=== PATIENT | female | born 2000 ===

== ENCOUNTER 2019-08-21 13:33 | Inpatient (IN) ==
[2019-08-21 14:07] LABS: Basophils # 0.1 10*3/uL (0.0-0.2); Basophils % 0.5 % (0.0-0.8); Eosinophils # 0.1 10*3/uL (0.0-0.87); Hematocrit 36.6 VOL% (35.7-47.0); Hemoglobin 12.1 GM/DL (12.0-16.0); Immature Granulocytes % 0.6 %; Immature Granulocytes Absolute 0.06 #; Lymphocytes % 29.5 % (21.3-54.2); Mean Corpuscular HGB Conc 33.1 GM/DL (32-36); Mean Corpuscular Volume 90.1 FL (87-102); Mean Platelet Volume 10.8 FL (9.6-12.0); Monocytes % 8.6 % (1.7-12.7); Neutrophils % 59.8 % (38.7-73.9); Platelet Count 177 T/CUMM (130-400); Red Blood Count 4.06 MC/CUMM (3.8-5.5); Red Cell Distribution Width 15.6 % (9.3-17.3); White Blood Count 10.3 T/CUMM (4-12)
[2019-08-21] MEDS: LACTATED RINGERS 1,000 ML IV SCH (22:05)
[2019-08-21] MEDS ORDERED: BUTORPHANOL 2 MG/ML VIAL IV PRN (22:07)
[2019-08-21] MEDS: ONDANSETRON 4 MG/2 ML VIAL IV PRN (22:17)
[2019-08-22] MEDS ORDERED: PROMETHAZINE 25 MG/1 ML VIAL IM ONE (00:13)
[2019-08-22] MEDS ORDERED: NALOXONE 0.4 MG/ML VIAL IV PRN (00:13)
[2019-08-22] MEDS ORDERED: diphenhydrAMINE 50 MG/1 ML VIAL IV PRN ×2 (00:13)
[2019-08-22] MEDS ORDERED: ePHEDrine 50 MG/ML AMP IV PRN (00:13)
[2019-08-22] MEDS ORDERED: hydrOXYzine HCL 25 MG/1 ML VIAL IM PRN (00:13)
[2019-08-22] MEDS ORDERED: FAMOTIDINE 20 MG/2 ML VIAL IV ONE ×2 (00:17→16:43)
[2019-08-22] MEDS ORDERED: CITRIC ACID/SODIUM CITRATE 30 ML UDCUP PO ONE ×2 (00:17→16:43)
[2019-08-22] MEDS: fentaNYL 2 MCG/ROPIV 0.2% EPID 100 ML EPIDURAL SCH ×2 (00:30→09:14)
[2019-08-22] MEDS ORDERED: LACTATED RINGERS 1,000 ML IV SCH ×2 (00:30→18:00)
[2019-08-22 03:21] LABS: Apearance,Urine CLEAR (Clear); Bilirubin,Urine Negative (Negative); Blood, Urine Negative (Negative); Glucose,Urine (UA) Negative (Negative); Ketones,Urine Negative (Negative); Mucus,Urine Occasional /LPF (Occasional); Nitrite,Urine Negative (Negative); Protein,Urine Negative; RBC,Urine 1 /HPF (0-4); Renal Epithelial Cells,Urine Occasional /HPF (<1); Urine Color Straw (Yellow); Urine Specific Gravity 1.011 (1.001-1.035); Urine Urobilinogen < 2.0 EU/DL (0.2-1.0); WBC,Urine 1 /HPF (0-6)
[2019-08-22] MEDS: LACTATED RINGERS 1,000 ML IV SCH (09:04)
[2019-08-22] MEDS ORDERED: OXYTOCIN/LR 20 UNIT/1,000 ML BAG IV SCH (10:00)
[2019-08-22] MEDS ORDERED: ceFAZolin 2,000 MG in PREMIX 1 EACH IV ONE (16:43)
[2019-08-22] MEDS ORDERED: TRANEXAMIC ACID 1,000 MG/10 ML VIAL ONE (16:45)
[2019-08-22] MEDS ORDERED: METHYLERGONOVINE 0.2 MG/1 ML AMP ONE (16:45)
[2019-08-22] MEDS ORDERED: OXYTOCIN/LR 20 UNIT/1,000 ML BAG IV ONE ×2 (16:45→17:32)
[2019-08-22] MEDS ORDERED: miSOPROStoL 200 MCG TABLET ONE (16:45)
[2019-08-22] MEDS ORDERED: CARBOPROST TROMETHAMINE 250 MCG/ML AMP IM ONE (16:46)
[2019-08-22] MEDS ORDERED: METOCLOPRAMIDE 10 MG/2 ML VIAL ONE (16:47)
[2019-08-22] MEDS ORDERED: MORPHINE 10 MG/10 ML VIAL ONE (16:47)
[2019-08-22] MEDS ORDERED: ONDANSETRON 4 MG/2 ML VIAL ONE (16:47)
[2019-08-22] MEDS ORDERED: LACTATED RINGERS 1,000 ML IV ONE (16:48)
[2019-08-22] MEDS ORDERED: KETOROLAC 30 MG/1 ML VIAL ONE (16:48)
[2019-08-22] MEDS ORDERED: PHENYLEPHRINE 1 MG/10 ML SYRINGE IV ONE (16:48)
[2019-08-22] MEDS ORDERED: LIDOCAINE MPF 2% /EPI 20 ML VIAL ONE (16:48)
[2019-08-22] MEDS ORDERED: RHO(D) IMMUNE GLOBULIN 300 MCG SYRINGE IM ONE (17:32)
[2019-08-22] MEDS ORDERED: ACETAMINOPHEN 325 MG TABLET PO PRN (17:32)
[2019-08-22] MEDS ORDERED: ONDANSETRON 4 MG/2 ML VIAL IV PRN (17:32)
[2019-08-22] MEDS: IBUPROFEN 800 MG TABLET PO PRN (20:40)
[2019-08-22] MEDS: ONDANSETRON 4 MG/2 ML VIAL IV PRN (22:00)
[2019-08-22] MEDS: DOCUSATE SODIUM 100 MG CAPSULE PO SCH (22:07)
[2019-08-23] MEDS: ceFAZolin 1,000 MG in SYRINGE 1 EACH IV SCH ×2 (00:03→07:40)
[2019-08-23 06:30] LABS: Basophils % 0.2 % (0.0-0.8); Eosinophils % 0.1 % (0.00-10.9); Hemoglobin 10.8 GM/DL (12.0-16.0); Immature Granulocytes % 0.5 %; Immature Granulocytes Absolute 0.07 #; Lymphocytes # 1.5 10*3/uL (1.4-4.0); Lymphocytes % 9.8 % (21.3-54.2); Mean Corpuscular HGB Conc 33.8 GM/DL (32-36); Mean Corpuscular Volume 88.2 FL (87-102); Mean Platelet Volume 11.6 FL (9.6-12.0); Monocytes % 4.4 % (1.7-12.7); Platelet Count 145 T/CUMM (130-400); Red Blood Count 3.63 MC/CUMM (3.8-5.5); Red Cell Distribution Width 15.3 % (9.3-17.3); White Blood Count 15.5 T/CUMM (4-12)
[2019-08-23] MEDS: DOCUSATE SODIUM 100 MG CAPSULE PO SCH ×2 (09:10→21:01)
[2019-08-23] MEDS: MAGNESIUM HYDROXIDE SUSP 30 ML UDCUP PO PRN ×2 (14:47→21:00)
[2019-08-23] MEDS: IBUPROFEN 800 MG TABLET PO PRN (19:35)
[2019-08-23] MEDS: SIMETHICONE CHEW 80 MG TABLET PO PRN (21:01)
[2019-08-24] MEDS: IBUPROFEN 800 MG TABLET PO PRN ×2 (02:35→13:58)
[2019-08-24] MEDS: SIMETHICONE CHEW 80 MG TABLET PO PRN (10:04)
[2019-08-24] MEDS: MULTIVITAMIN (PRENATAL) TABLET PO SCH (10:04)
[2019-08-24] MEDS: MAGNESIUM HYDROXIDE SUSP 30 ML UDCUP PO PRN (10:04)
[2019-08-24] MEDS: DOCUSATE SODIUM 100 MG CAPSULE PO SCH ×2 (10:04→20:52)
[2019-08-24] MEDS ORDERED: BISACODYL 10 MG SUPP RECTAL ONE ×2 (17:27→17:36)
[2019-08-25] MEDS: IBUPROFEN 800 MG TABLET PO PRN ×2 (00:06→08:59)
[2019-08-25 08:33] VITALS: BP 116/66
[2019-08-25] MEDS: MULTIVITAMIN (PRENATAL) TABLET PO SCH (08:58)
[2019-08-25] MEDS: DOCUSATE SODIUM 100 MG CAPSULE PO SCH (08:59)
[2019-08-25] MEDS: SIMETHICONE CHEW 80 MG TABLET PO PRN (08:59)
[2019-08-25] MEDS ORDERED: MAGNESIUM CITRATE 300 ML BOTTLE PO ONE (09:42)
== END 2019-08-25 11:50 | disposition home or self-care (01) | DRG 540 ==
LOC: N.LDOUT 13:33 → N.LD 13:40 → N.OB 08-22 20:34
PROVIDERS: ADMIT Obstetrics & Gynecology; ATTEND Obstetrics & Gynecology
PROC: LDCSECT (ICD-10-PCS; 2019-08-22 17:00)

== ENCOUNTER 2019-08-27 00:15 | Inpatient (IN) ==
[2019-08-27] MEDS ORDERED: SODIUM CHLORIDE 0.9% 1,000 ML IV STA (00:53)
[2019-08-27] MEDS ORDERED: MORPHINE 4 MG/1 ML VIAL IV STA (01:29)
[2019-08-27] MEDS ORDERED: ONDANSETRON 4 MG/2 ML VIAL IV ONE (01:29)
[2019-08-27] MEDS ORDERED: PIPERACILLIN/TAZOBACTAM 3,375 MG in SODIUM CHLORIDE 0.9% 100 ML IV STA (01:41)
[2019-08-27] MEDS ORDERED: ACETAMINOPHEN 325 MG TABLET PO PRN (01:43)
[2019-08-27] MEDS ORDERED: ONDANSETRON 4 MG/2 ML VIAL IV PRN (01:43)
[2019-08-27 01:58] LABS: Apearance,Urine CLEAR (Clear); Bacteria,Urine Occasional /HPF (Few); Bilirubin,Urine Negative (Negative); Blood, Urine Moderate mg/dL (Negative); Glucose,Urine (UA) Negative (Negative); Ketones,Urine 20 mg/dL (Negative); Nitrite,Urine Negative (Negative); Protein,Urine Negative; RBC,Urine <1 /HPF (0-4); Squamous Epithelial Cell,Urine Occasional /HPF (0-10); Urine Color Yellow (Yellow); Urine Specific Gravity 1.009 (1.001-1.035); Urine Urobilinogen < 2.0 EU/DL (0.2-1.0); WBC,Urine 1 /HPF (0-6)
[2019-08-27] MEDS: IBUPROFEN 800 MG TABLET PO PRN ×3 (02:17→21:53)
[2019-08-27] MEDS: LACTATED RINGERS 1,000 ML IV SCH ×3 (03:03→17:25)
[2019-08-27 06:11] LABS: Basophils % 0.2 % (0.0-0.8); Eosinophils # 0.1 10*3/uL (0.0-0.87); Eosinophils % 0.7 % (0.00-10.9); Hemoglobin 8.8 GM/DL (12.0-16.0); Immature Granulocytes % 1.7 %; Immature Granulocytes Absolute 0.26 #; Lymphocytes # 1.4 10*3/uL (1.4-4.0); Lymphocytes % 9.2 % (21.3-54.2); Mean Corpuscular HGB Conc 32.6 GM/DL (32-36); Mean Corpuscular Volume 91.8 FL (87-102); Mean Platelet Volume 9.4 FL (9.6-12.0); Neutrophils % 80.2 % (38.7-73.9); Platelet Count 246 T/CUMM (130-400); Red Blood Count 2.94 MC/CUMM (3.8-5.5); Red Cell Distribution Width 15.8 % (9.3-17.3); White Blood Count 15.6 T/CUMM (4-12)
[2019-08-27 06:32] LABS: Albumin 1.6 G/DL (3.4-5.0); Bilirubin,Total 0.8 MG/DL (0.2-1.0); Calcium 7.9 MG/DL (8.5-10.1); Osmolality,Calculated 271.8 MOS/KG (273-304); Total Protein 5.2 G/DL (6.4-8.3)
[2019-08-27] MEDS: PANTOPRAZOLE 40 MG VIAL IV SCH (08:40)
[2019-08-27] MEDS: PIPERACILLIN/TAZOBACTAM 3,375 MG in SODIUM CHLORIDE 0.9% 100 ML IV SCH ×2 (11:22→18:09)
[2019-08-28] MEDS: PIPERACILLIN/TAZOBACTAM 3,375 MG in SODIUM CHLORIDE 0.9% 100 ML IV SCH ×3 (03:18→20:33)
[2019-08-28] MEDS: LACTATED RINGERS 1,000 ML IV SCH ×2 (03:19→09:11)
[2019-08-28] MEDS: IBUPROFEN 800 MG TABLET PO PRN ×2 (09:08→20:33)
[2019-08-28] MEDS: PANTOPRAZOLE 40 MG VIAL IV SCH (09:09)
[2019-08-28] MEDS: MORPHINE 4 MG/1 ML VIAL IV PRN (21:15)
[2019-08-28] MEDS: SIMETHICONE CHEW 80 MG TABLET PO PRN (22:00)
[2019-08-29] MEDS: LACTATED RINGERS 1,000 ML IV SCH ×4 (02:40→21:08)
[2019-08-29] MEDS: PIPERACILLIN/TAZOBACTAM 3,375 MG in SODIUM CHLORIDE 0.9% 100 ML IV SCH ×3 (04:16→21:50)
[2019-08-29] MEDS: MORPHINE 4 MG/1 ML VIAL IV PRN (06:06)
[2019-08-29] MEDS: IBUPROFEN 800 MG TABLET PO PRN (08:55)
[2019-08-29] MEDS: PANTOPRAZOLE 40 MG VIAL IV SCH (08:56)
[2019-08-29 09:53] LABS: Basophils % 0.2 % (0.0-0.8); Eosinophils # 0.2 10*3/uL (0.0-0.87); Eosinophils % 1.3 % (0.00-10.9); Hematocrit 29.7 VOL% (35.7-47.0); Hemoglobin 9.8 GM/DL (12.0-16.0); Immature Granulocytes % 1.6 %; Immature Granulocytes Absolute 0.18 #; Lymphocytes # 1.8 10*3/uL (1.4-4.0); Lymphocytes % 15.9 % (21.3-54.2); Monocytes % 7.5 % (1.7-12.7); Neutrophils % 73.5 % (38.7-73.9); Platelet Count 312 T/CUMM (130-400); Red Cell Distribution Width 15.5 % (9.3-17.3); White Blood Count 11.5 T/CUMM (4-12)
[2019-08-29] MEDS: oxyCODONE/ACETAMINOPHEN 5-325 MG TABLET PO PRN ×2 (11:05→20:49)
[2019-08-29] MEDS: SIMETHICONE CHEW 80 MG TABLET PO PRN ×2 (11:06→21:51)
[2019-08-30] MEDS: IBUPROFEN 800 MG TABLET PO PRN ×2 (00:23→09:30)
[2019-08-30] MEDS: LACTATED RINGERS 1,000 ML IV SCH ×3 (05:00→19:14)
[2019-08-30] MEDS: oxyCODONE/ACETAMINOPHEN 5-325 MG TABLET PO PRN ×2 (05:23→18:09)
[2019-08-30] MEDS: PIPERACILLIN/TAZOBACTAM 3,375 MG in SODIUM CHLORIDE 0.9% 100 ML IV SCH ×3 (05:24→20:42)
[2019-08-30] MEDS: SIMETHICONE CHEW 80 MG TABLET PO PRN ×3 (09:29→20:42)
[2019-08-30] MEDS: PANTOPRAZOLE 40 MG VIAL IV SCH (09:30)
[2019-08-31] MEDS: oxyCODONE/ACETAMINOPHEN 5-325 MG TABLET PO PRN (04:03)
[2019-08-31] MEDS: PIPERACILLIN/TAZOBACTAM 3,375 MG in SODIUM CHLORIDE 0.9% 100 ML IV SCH ×2 (05:32→12:34)
[2019-08-31 05:36] LABS: Basophils % 0.2 % (0.0-0.8); Eosinophils # 0.1 10*3/uL (0.0-0.87); Eosinophils % 0.4 % (0.00-10.9); Hematocrit 28.5 VOL% (35.7-47.0); Hemoglobin 9.3 GM/DL (12.0-16.0); Immature Granulocytes Absolute 0.34 #; Lymphocytes # 1.6 10*3/uL (1.4-4.0); Lymphocytes % 9.6 % (21.3-54.2); Mean Corpuscular HGB Conc 32.6 GM/DL (32-36); Mean Corpuscular Volume 90.5 FL (87-102); Mean Platelet Volume 8.8 FL (9.6-12.0); Monocytes % 6.5 % (1.7-12.7); NRBC # 0.03 10*3/uL; Neutrophils % 81.3 % (38.7-73.9); Platelet Count 346 T/CUMM (130-400); Red Blood Count 3.15 MC/CUMM (3.8-5.5); Red Cell Distribution Width 15.2 % (9.3-17.3); White Blood Count 16.9 T/CUMM (4-12)
[2019-08-31] MEDS: SIMETHICONE CHEW 80 MG TABLET PO PRN (08:56)
[2019-08-31] MEDS: IBUPROFEN 800 MG TABLET PO PRN (08:56)
[2019-08-31] MEDS: PANTOPRAZOLE 40 MG VIAL IV SCH (08:56)
[2019-08-31] MEDS ORDERED: [UNRECOGNIZED DRUG - OTHER] PO SCH (09:00)
[2019-08-31] MEDS ORDERED: [UNRECOGNIZED DRUG - REMARK] PO SCH (09:00)
[2019-08-31 14:23] VITALS: BP 120/58
== END 2019-08-31 13:20 | disposition home or self-care (01) | DRG 561 ==
LOC: EDBD → EDUNIT# → N.ED 00:15 → N.EDINP 01:41 → N.2E 02:35
PROVIDERS: ADMIT Specialist; ATTEND Specialist

== ENCOUNTER 2019-09-01 15:42 | Inpatient (IN) ==
[2019-09-01] MEDS ORDERED: LACTATED RINGERS 1,000 ML IV ONE (16:32)
[2019-09-01] MEDS ORDERED: ONDANSETRON 4 MG/2 ML VIAL IV ONE (16:32)
[2019-09-01] MEDS ORDERED: HYDROmorphone 2 MG/1 ML VIAL IV STA ×2 (16:32→18:37)
[2019-09-01 16:58] LABS: Basophils % 0.1 % (0.0-0.8); Eosinophils # 0.1 10*3/uL (0.0-0.87); Eosinophils % 0.4 % (0.00-10.9); Hematocrit 28.3 VOL% (35.7-47.0); Hemoglobin 9.3 GM/DL (12.0-16.0); Immature Granulocytes % 2.7 %; Immature Granulocytes Absolute 0.57 #; Lymphocytes # 2.3 10*3/uL (1.4-4.0); Lymphocytes % 10.8 % (21.3-54.2); Mean Corpuscular HGB Conc 32.9 GM/DL (32-36); Mean Corpuscular Volume 91.3 FL (87-102); Mean Platelet Volume 8.6 FL (9.6-12.0); Monocytes % 6.1 % (1.7-12.7); NRBC # 0.02 10*3/uL; Neutrophils % 79.9 % (38.7-73.9); Platelet Count 355 T/CUMM (130-400); Red Cell Distribution Width 15.6 % (9.3-17.3); White Blood Count 21.1 T/CUMM (4-12)
[2019-09-01 17:10] LABS: Albumin 1.9 G/DL (3.4-5.0); Bilirubin,Total 0.4 MG/DL (0.2-1.0); Calcium 8.4 MG/DL (8.5-10.1); Osmolality,Calculated 265.2 MOS/KG (273-304); Total Protein 6.6 G/DL (6.4-8.3)
[2019-09-01 17:20] LABS: Anisocytosis Slight; Lymphocytes 10 % (20-55); Macrocytosis Slight; Microcytosis Slight; Platelet Estimate Normal; Segmented Neutrophils 85 % (50-85); Total Cells Counted 100
[2019-09-01 17:21] LABS: Apearance,Urine CLEAR (Clear); Bilirubin,Urine Negative (Negative); Blood, Urine Negative (Negative); Glucose,Urine (UA) Negative (Negative); Ketones,Urine Negative (Negative); Nitrite,Urine Negative (Negative); Protein,Urine 30 MG/DL; RBC,Urine 1 /HPF (0-4); Squamous Epithelial Cell,Urine Occasional /HPF (0-10); Urine Color Yellow (Yellow); Urine Specific Gravity 1.018 (1.001-1.035); WBC,Urine 1 /HPF (0-6)
[2019-09-01] MEDS ORDERED: PIPERACILLIN/TAZOBACTAM 3,375 MG in SODIUM CHLORIDE 0.9% 100 ML IV STA ×2 (19:12→19:18)
[2019-09-01] MEDS ORDERED: IBUPROFEN 800 MG TABLET PO PRN (19:55)
[2019-09-01] MEDS ORDERED: BISACODYL 10 MG SUPP RECTAL PRN (19:55)
[2019-09-01] MEDS ORDERED: ACETAMINOPHEN 325 MG TABLET PO PRN (19:55)
[2019-09-01] MEDS ORDERED: MAGNESIUM HYDROXIDE SUSP 30 ML UDCUP PO PRN (19:55)
[2019-09-01] MEDS ORDERED: ONDANSETRON 4 MG/2 ML VIAL IV PRN (19:55)
[2019-09-01] MEDS: LACTATED RINGERS 1,000 ML IV SCH (21:40)
[2019-09-01] MEDS: DOCUSATE SODIUM 100 MG CAPSULE PO SCH (23:43)
[2019-09-02 05:10] LABS: Basophils % 0.2 % (0.0-0.8); Eosinophils # 0.1 10*3/uL (0.0-0.87); Eosinophils % 0.7 % (0.00-10.9); Hematocrit 25.1 VOL% (35.7-47.0); Hemoglobin 8.2 GM/DL (12.0-16.0); Immature Granulocytes % 2.1 %; Immature Granulocytes Absolute 0.38 #; Lymphocytes # 2.1 10*3/uL (1.4-4.0); Lymphocytes % 11.7 % (21.3-54.2); Mean Corpuscular HGB Conc 32.7 GM/DL (32-36); Mean Corpuscular Volume 90.6 FL (87-102); Monocytes % 5.9 % (1.7-12.7); Neutrophils % 79.4 % (38.7-73.9); Platelet Count 353 T/CUMM (130-400); Red Blood Count 2.77 MC/CUMM (3.8-5.5); Red Cell Distribution Width 15.5 % (9.3-17.3); White Blood Count 18.3 T/CUMM (4-12)
[2019-09-02] MEDS: LACTATED RINGERS 1,000 ML IV SCH ×3 (07:38→21:23)
[2019-09-02] MEDS: DOCUSATE SODIUM 100 MG CAPSULE PO SCH ×2 (09:19→21:23)
[2019-09-02] MEDS: IBUPROFEN 800 MG TABLET PO SCH ×2 (16:23→21:30)
[2019-09-02] MEDS: PIPERACILLIN/TAZOBACTAM 3,375 MG in SODIUM CHLORIDE 0.9% 100 ML IV SCH (18:28)
[2019-09-03] MEDS: PIPERACILLIN/TAZOBACTAM 3,375 MG in SODIUM CHLORIDE 0.9% 100 ML IV SCH ×3 (02:46→17:35)
[2019-09-03] MEDS: LACTATED RINGERS 1,000 ML IV SCH ×3 (08:01→20:00)
[2019-09-03] MEDS: DOCUSATE SODIUM 100 MG CAPSULE PO SCH ×2 (08:02→22:10)
[2019-09-03] MEDS: IBUPROFEN 800 MG TABLET PO SCH ×3 (08:02→22:11)
[2019-09-03 11:55] LABS: Basophils % 0.2 % (0.0-0.8); Eosinophils # 0.2 10*3/uL (0.0-0.87); Eosinophils % 1.7 % (0.00-10.9); Hematocrit 29.4 VOL% (35.7-47.0); Hemoglobin 9.5 GM/DL (12.0-16.0); Immature Granulocytes % 2.4 %; Immature Granulocytes Absolute 0.31 #; Lymphocytes # 1.9 10*3/uL (1.4-4.0); Lymphocytes % 15.2 % (21.3-54.2); Mean Corpuscular HGB Conc 32.3 GM/DL (32-36); Mean Corpuscular Volume 91.6 FL (87-102); Mean Platelet Volume 8.7 FL (9.6-12.0); Neutrophils % 75.5 % (38.7-73.9); Platelet Count 414 T/CUMM (130-400); Red Blood Count 3.21 MC/CUMM (3.8-5.5); Red Cell Distribution Width 15.4 % (9.3-17.3); White Blood Count 12.7 T/CUMM (4-12)
[2019-09-03 12:29] LABS: Alanine Aminotransferase 14 U/L (13-56); Albumin 1.8 G/DL (3.4-5.0); Alkaline Phosphatase 195 U/L (45-117); Aspartate Amino Transferase 13 U/L (0-37); Bilirubin,Total < 0.39 MG/DL (0.2-1.0); Blood Urea Nitrogen 10 MG/DL (7-18); Calcium 8.5 MG/DL (8.5-10.1); Estimated Glom Filtration Rate 87 ML/MIN; Glucose 87 MG/DL (74-106); Osmolality,Calculated 278.3 MOS/KG (273-304); Total Protein 6.2 G/DL (6.4-8.3)
[2019-09-04] MEDS: PIPERACILLIN/TAZOBACTAM 3,375 MG in SODIUM CHLORIDE 0.9% 100 ML IV SCH ×3 (03:28→18:24)
[2019-09-04] MEDS: LACTATED RINGERS 1,000 ML IV SCH ×6 (08:01→20:14)
[2019-09-04] MEDS: DOCUSATE SODIUM 100 MG CAPSULE PO SCH ×2 (08:47→20:13)
[2019-09-04] MEDS: IBUPROFEN 800 MG TABLET PO SCH ×4 (08:47→23:16)
[2019-09-04] MEDS ORDERED: MICROFIBRILLAR COLLAGEN POWDER 1 GM CAN TOP ONE (15:14)
[2019-09-04] MEDS ORDERED: BACITRACIN 50,000 UNIT VIAL ONE (16:52)
[2019-09-04] MEDS ORDERED: POLYMYXIN B 500,000 UNIT VIAL ONE (16:52)
[2019-09-04] MEDS ORDERED: IBUPROFEN 800 MG TABLET PO PRN (17:05)
[2019-09-04] MEDS ORDERED: BENZOCAINE/MENTHOL LOZENGE 18/BOX PO PRN (17:05)
[2019-09-04] MEDS ORDERED: ACETAMINOPHEN 325 MG TABLET PO PRN (17:05)
[2019-09-04] MEDS ORDERED: ONDANSETRON 4 MG/2 ML VIAL IV PRN (17:05)
[2019-09-04] MEDS ORDERED: BISACODYL 10 MG SUPP RECTAL PRN (17:05)
[2019-09-04] MEDS ORDERED: DOCUSATE SODIUM 100 MG CAPSULE PO PRN (17:05)
[2019-09-04] MEDS ORDERED: MAGNESIUM HYDROXIDE SUSP 30 ML UDCUP PO PRN (17:05)
[2019-09-04] MEDS ORDERED: propofoL 200 MG/20 ML VIAL IV ONE (17:24)
[2019-09-04] MEDS ORDERED: LIDOCAINE 2% 5 ML VIAL ONE (17:24)
[2019-09-04] MEDS ORDERED: SEVOFLURANE 1 UNIT/15 MINUTE INH ONE (17:24)
[2019-09-04] MEDS ORDERED: DEXAMETHASONE 4 MG/1 ML VIAL ONE (17:24)
[2019-09-04] MEDS ORDERED: MIDAZOLAM 2 MG/2 ML VIAL ONE (17:24)
[2019-09-04] MEDS ORDERED: ROCURONIUM 100 MG/10 ML VIAL IV ONE (17:25)
[2019-09-04] MEDS ORDERED: fentaNYL 100 MCG/2 ML VIAL ONE (17:25)
[2019-09-04] MEDS ORDERED: NEOSTIGMINE 10 MG/10 ML VIAL ONE (17:25)
[2019-09-04] MEDS ORDERED: SUCCINYLCHOLINE 200 MG/10 ML VIAL ONE (17:25)
[2019-09-04] MEDS ORDERED: ONDANSETRON 4 MG/2 ML VIAL ONE (17:25)
[2019-09-04] MEDS ORDERED: GLYCOPYRROLATE 0.4 MG/2 ML VIAL ONE (17:25)
[2019-09-04] MEDS ORDERED: KETOROLAC 30 MG/1 ML VIAL ONE (17:25)
[2019-09-04] MEDS ORDERED: HYDROmorphone 2 MG/1 ML VIAL ONE (17:26)
[2019-09-05] MEDS: PIPERACILLIN/TAZOBACTAM 3,375 MG in SODIUM CHLORIDE 0.9% 100 ML IV SCH ×3 (03:29→18:33)
[2019-09-05] MEDS: LACTATED RINGERS 1,000 ML IV SCH ×5 (03:30→18:33)
[2019-09-05 05:40] LABS: Basophils % 0.2 % (0.0-0.8); Eosinophils % 0.1 % (0.00-10.9); Hematocrit 28.3 VOL% (35.7-47.0); Hemoglobin 9.3 GM/DL (12.0-16.0); Immature Granulocytes Absolute 0.33 #; Lymphocytes # 1.8 10*3/uL (1.4-4.0); Lymphocytes % 10.9 % (21.3-54.2); Mean Corpuscular HGB Conc 32.9 GM/DL (32-36); Mean Corpuscular Volume 89.6 FL (87-102); Mean Platelet Volume 8.8 FL (9.6-12.0); Monocytes % 3.5 % (1.7-12.7); Neutrophils % 83.3 % (38.7-73.9); Platelet Count 520 T/CUMM (130-400); Red Blood Count 3.16 MC/CUMM (3.8-5.5); Red Cell Distribution Width 14.6 % (9.3-17.3); White Blood Count 16.4 T/CUMM (4-12)
[2019-09-05 05:58] LABS: Calcium 8.5 MG/DL (8.5-10.1); Osmolality,Calculated 274.7 MOS/KG (273-304)
[2019-09-05] MEDS: DOCUSATE SODIUM 100 MG CAPSULE PO SCH ×2 (08:16→20:19)
[2019-09-05] MEDS: IBUPROFEN 800 MG TABLET PO SCH ×3 (08:17→20:19)
[2019-09-05] MEDS: POLYETHYLENE GLYCOL POWDER 17 GM PACK PO SCH (11:54)
[2019-09-05] MEDS: SODIUM HYPOCHLORITE 0.25% IRRIG 473 ML BOTTLE TOP SCH (11:54)
[2019-09-05] MEDS: SIMETHICONE CHEW 80 MG TABLET PO PRN (11:56)
[2019-09-06] MEDS: LACTATED RINGERS 1,000 ML IV SCH ×2 (01:44→16:04)
[2019-09-06] MEDS: PIPERACILLIN/TAZOBACTAM 3,375 MG in SODIUM CHLORIDE 0.9% 100 ML IV SCH ×3 (01:44→17:47)
[2019-09-06] MEDS: POLYETHYLENE GLYCOL POWDER 17 GM PACK PO SCH (08:39)
[2019-09-06] MEDS: IBUPROFEN 800 MG TABLET PO SCH ×3 (08:40→20:57)
[2019-09-06] MEDS: DOCUSATE SODIUM 100 MG CAPSULE PO SCH ×2 (08:43→20:57)
[2019-09-06] MEDS: SODIUM HYPOCHLORITE 0.25% IRRIG 473 ML BOTTLE TOP SCH (08:43)
[2019-09-06] MEDS ORDERED: MORPHINE 4 MG/1 ML VIAL IV ONE (08:45)
[2019-09-07] MEDS: PIPERACILLIN/TAZOBACTAM 3,375 MG in SODIUM CHLORIDE 0.9% 100 ML IV SCH ×3 (03:18→18:08)
[2019-09-07] MEDS: LACTATED RINGERS 1,000 ML IV SCH ×3 (03:18→19:31)
[2019-09-07 05:01] LABS: Basophils % 0.4 % (0.0-0.8); Eosinophils # 0.3 10*3/uL (0.0-0.87); Eosinophils % 3.3 % (0.00-10.9); Hematocrit 26.5 VOL% (35.7-47.0); Hemoglobin 8.4 GM/DL (12.0-16.0); Immature Granulocytes % 4.1 %; Immature Granulocytes Absolute 0.38 #; Lymphocytes # 2.9 10*3/uL (1.4-4.0); Lymphocytes % 30.8 % (21.3-54.2); Mean Corpuscular HGB Conc 31.7 GM/DL (32-36); Mean Corpuscular Volume 92.3 FL (87-102); Mean Platelet Volume 8.9 FL (9.6-12.0); Monocytes % 7.1 % (1.7-12.7); NRBC # 0.02 10*3/uL; Neutrophils % 54.3 % (38.7-73.9); Platelet Count 517 T/CUMM (130-400); Red Blood Count 2.87 MC/CUMM (3.8-5.5); Red Cell Distribution Width 15.3 % (9.3-17.3); White Blood Count 9.3 T/CUMM (4-12)
[2019-09-07] MEDS: DOCUSATE SODIUM 100 MG CAPSULE PO SCH ×2 (10:14→21:13)
[2019-09-07] MEDS: POLYETHYLENE GLYCOL POWDER 17 GM PACK PO SCH (10:15)
[2019-09-07] MEDS: SODIUM HYPOCHLORITE 0.25% IRRIG 473 ML BOTTLE TOP SCH (10:15)
[2019-09-07] MEDS: IBUPROFEN 800 MG TABLET PO SCH ×3 (10:15→20:56)
[2019-09-07] MEDS ORDERED: HYDROmorphone 2 MG/1 ML VIAL IV ONE (12:10)
[2019-09-07] MEDS ORDERED: LIDOCAINE 1%/EPI INJ 20 ML VIAL ONE (13:04)
[2019-09-07] MEDS ORDERED: BUPIVACAINE MPF 0.25% 30 ML VIAL ONE (13:04)
[2019-09-07] MEDS ORDERED: ONDANSETRON 4 MG/2 ML VIAL IV PRN (14:05)
[2019-09-07] MEDS ORDERED: HYDROmorphone 2 MG/1 ML VIAL ONE (14:11)
[2019-09-07] MEDS ORDERED: ONDANSETRON 4 MG/2 ML VIAL ONE (14:11)
[2019-09-07] MEDS: HYDROmorphone 2 MG/1 ML VIAL IV PRN ×4 (14:12→14:40)
[2019-09-07] MEDS ORDERED: fentaNYL 100 MCG/2 ML VIAL ONE (14:15)
[2019-09-07] MEDS ORDERED: propofoL 200 MG/20 ML VIAL IV ONE (14:15)
[2019-09-07] MEDS ORDERED: LIDOCAINE 2% 5 ML VIAL ONE (14:15)
[2019-09-07] MEDS ORDERED: MIDAZOLAM 2 MG/2 ML VIAL ONE (14:15)
[2019-09-08] MEDS: SIMETHICONE CHEW 80 MG TABLET PO PRN (00:49)
[2019-09-08] MEDS: PIPERACILLIN/TAZOBACTAM 3,375 MG in SODIUM CHLORIDE 0.9% 100 ML IV SCH ×2 (02:16→09:54)
[2019-09-08] MEDS: LACTATED RINGERS 1,000 ML IV SCH ×2 (02:18→08:37)
[2019-09-08 07:52] VITALS: BP 106/50
[2019-09-08] MEDS: DOCUSATE SODIUM 100 MG CAPSULE PO SCH (08:34)
[2019-09-08] MEDS: IBUPROFEN 800 MG TABLET PO SCH (08:34)
[2019-09-08] MEDS: POLYETHYLENE GLYCOL POWDER 17 GM PACK PO SCH (08:37)
[2019-09-08] MEDS: SODIUM HYPOCHLORITE 0.25% IRRIG 473 ML BOTTLE TOP SCH (08:37)
== END 2019-09-08 11:08 | disposition home or self-care (01) | DRG 546 ==
LOC: N.ED 15:42 → N.EDINP 19:55 → N.5E 20:59
PROVIDERS: ADMIT Obstetrics & Gynecology; ATTEND Obstetrics & Gynecology

== ENCOUNTER 2022-05-11 11:12 | Inpatient (IN) ==
[2022-05-11] MEDS ORDERED: METHYLERGONOVINE 0.2 MG/1 ML AMP IM PRN (11:50)
[2022-05-11] MEDS ORDERED: OXYTOCIN/LR 20 UNIT/1,000 ML BAG IV ONE ×2 (11:50→17:07)
[2022-05-11] MEDS ORDERED: CARBOPROST TROMETHAMINE 250 MCG/ML AMP IM PRN (11:50)
[2022-05-11] MEDS ORDERED: miSOPROStoL 200 MCG TABLET RECTAL PRN (11:50)
[2022-05-11] MEDS ORDERED: FAMOTIDINE 20 MG/2 ML VIAL IV ONE (11:50)
[2022-05-11] MEDS ORDERED: CITRIC ACID/SODIUM CITRATE 30 ML UDCUP PO ONE (11:50)
[2022-05-11] MEDS ORDERED: TRANEXAMIC ACID 1,000 MG in SODIUM CHLORIDE 0.9% 100 ML IV PRN (11:50)
[2022-05-11] MEDS ORDERED: ceFAZolin 2,000 MG/50 ML DUPLEX IV ONE (11:50)
[2022-05-11] MEDS ORDERED: LACTATED RINGERS 1,000 ML IV SCH ×2 (12:00→17:30)
[2022-05-11 12:13] LABS: Basophils % 0.3 % (0.0-0.8); Eosinophils % 0.4 % (0.00-10.9); Hematocrit 38.3 VOL% (35.7-47.0); Hemoglobin 12.3 GM/DL (12.0-16.0); Immature Granulocytes % 0.5 %; Immature Granulocytes Absolute 0.05 #; Lymphocytes # 2.6 10*3/uL (1.4-4.0); Lymphocytes % 27.8 % (21.3-54.2); Mean Corpuscular HGB Conc 32.1 GM/DL (32-36); Mean Corpuscular Volume 83.4 FL (87-102); Monocytes # 0.5 10*3/uL (0.11-0.8); Monocytes % 5.3 % (1.7-12.7); Neutrophils % 65.7 % (38.7-73.9); Platelet Count 267 T/CUMM (130-400); Red Blood Count 4.59 MC/CUMM (3.8-5.5); Red Cell Distribution Width 17.5 % (9.3-17.3); White Blood Count 9.4 T/CUMM (4-12)
[2022-05-11 12:25] LABS: Albumin 2.5 G/DL (3.4-5.0); Bilirubin,Total 0.6 MG/DL (0.20-1.00); Potassium 3.8 MMOL/L (3.5-5.1); Total Protein 6.5 G/DL (6.4-8.2)
[2022-05-11] MEDS ORDERED: OXYTOCIN/LR 30 UNIT/1,000 ML BAG IV ONE (13:00)
[2022-05-11] MEDS ORDERED: SODIUM CHLORIDE 0.9% 0 ML IV ONE (14:10)
[2022-05-11] MEDS ORDERED: TRANEXAMIC ACID 1,000 MG/10 ML VIAL ONE (14:10)
[2022-05-11] MEDS ORDERED: miSOPROStoL 200 MCG TABLET ONE (14:10)
[2022-05-11] MEDS ORDERED: CARBOPROST TROMETHAMINE 250 MCG/ML AMP IM ONE (14:11)
[2022-05-11] MEDS ORDERED: METHYLERGONOVINE 0.2 MG/1 ML AMP ONE (14:11)
[2022-05-11] MEDS ORDERED: TERBUTALINE 1 MG/1 ML VIAL SUBCUT ONE (14:52)
[2022-05-11] MEDS ORDERED: buprenorphine HCL 0.3 MG/ML VIAL ONE (15:58)
[2022-05-11] MEDS ORDERED: PHENYLEPHRINE 1 MG/10 ML SYRINGE IV ONE (16:17)
[2022-05-11] MEDS ORDERED: ONDANSETRON 4 MG/2 ML VIAL ONE (16:18)
[2022-05-11] MEDS ORDERED: ACETAMINOPHEN INJ 1,000 MG/100 ML VIAL IV ONE (16:18)
[2022-05-11] MEDS ORDERED: DEXAMETHASONE 4 MG/1 ML VIAL ONE (16:18)
[2022-05-11] MEDS ORDERED: KETOROLAC 30 MG/1 ML VIAL ONE (16:18)
[2022-05-11] MEDS ORDERED: propofoL 200 MG/20 ML VIAL IV ONE (16:33)
[2022-05-11] MEDS ORDERED: ROCURONIUM 50 MG/5 ML VIAL IV ONE (16:33)
[2022-05-11] MEDS ORDERED: LIDOCAINE 2% 5 ML VIAL ONE (16:33)
[2022-05-11] MEDS ORDERED: SUCCINYLCHOLINE 200 MG/10 ML VIAL ONE (16:33)
[2022-05-11] MEDS ORDERED: fentaNYL 100 MCG/2 ML VIAL ONE (16:33)
[2022-05-11] MEDS: OXYTOCIN/LR 30 UNIT/1,000 ML BAG IV SCH ×2 (16:38→21:32)
[2022-05-11 16:50] LABS: Cord Arterial Blood HCO3 20.3 MMOL/L
[2022-05-11 16:52] LABS: Cord Venous Blood HCO3 20.6 MMOL/L; Cord Venous Blood PCO2 53.2 MMHG
[2022-05-11] MEDS ORDERED: SEVOFLURANE 1 UNIT/15 MINUTE INH ONE (16:56)
[2022-05-11 16:59] LABS: Bacteria,Urine Few /HPF (Few); Bilirubin,Urine Negative (Negative); Blood, Urine Negative (Negative); Glucose,Urine (UA) Negative (Negative); Ketones,Urine 80 mg/dL (Negative); Mucus,Urine Occasional /LPF (Occasional); Nitrite,Urine Negative (Negative); Protein,Urine Negative (Negative); RBC,Urine 1 /HPF (0-4); Squamous Epithelial Cell,Urine Occasional /HPF (0-10); Urine Appearance Slightly Hazy (Clear); Urine Color Amber (Yellow); Urine Specific Gravity 1.014 (1.001-1.035)
[2022-05-11] MEDS ORDERED: HYDROmorphone 1 MG/1 ML SYRINGE ONE (17:01)
[2022-05-11] MEDS ORDERED: ACETAMINOPHEN 325 MG TABLET PO PRN (17:07)
[2022-05-11] MEDS ORDERED: IBUPROFEN 800 MG TABLET PO PRN (17:07)
[2022-05-11] MEDS ORDERED: ONDANSETRON 4 MG/2 ML VIAL IV PRN (17:07)
[2022-05-11] MEDS ORDERED: RHO(D) IMMUNE GLOBULIN 300 MCG SYRINGE IM ONE (17:07)
[2022-05-11] MEDS ORDERED: IBUPROFEN 800 MG TABLET PO ONE (21:24)
[2022-05-12] MEDS: KETOROLAC 30 MG/1 ML VIAL IV SCH ×3 (00:40→13:44)
[2022-05-12] MEDS: ACETAMINOPHEN 500 MG TABLET PO SCH ×3 (00:40→13:44)
[2022-05-12 06:28] LABS: Basophils % 0.1 % (0.0-0.8); Eosinophils % 0.1 % (0.00-10.9); Hematocrit 30.8 VOL% (35.7-47.0); Hemoglobin 10.1 GM/DL (12.0-16.0); Immature Granulocytes % 0.6 %; Immature Granulocytes Absolute 0.07 #; Lymphocytes # 2.6 10*3/uL (1.4-4.0); Lymphocytes % 21.7 % (21.3-54.2); Mean Corpuscular HGB Conc 32.8 GM/DL (32-36); Mean Platelet Volume 10.8 FL (9.6-12.0); Monocytes # 0.7 10*3/uL (0.11-0.8); Monocytes % 6.1 % (1.7-12.7); Neutrophils % 71.4 % (38.7-73.9); Platelet Count 214 T/CUMM (130-400); Red Blood Count 3.71 MC/CUMM (3.8-5.5); Red Cell Distribution Width 16.5 % (9.3-17.3); White Blood Count 11.9 T/CUMM (4-12)
[2022-05-12] MEDS: MAGNESIUM HYDROXIDE SUSP 30 ML UDCUP PO PRN (09:31)
[2022-05-12] MEDS: METOCLOPRAMIDE 10 MG TABLET PO SCH (09:31)
[2022-05-12] MEDS: DOCUSATE SODIUM 100 MG CAPSULE PO SCH ×2 (09:32→21:39)
[2022-05-12] MEDS: MULTIVITAMIN (PRENATAL) TABLET PO SCH (09:32)
[2022-05-12] MEDS: SIMETHICONE CHEW 80 MG TABLET PO PRN (09:32)
[2022-05-13] MEDS: METOCLOPRAMIDE 10 MG TABLET PO SCH ×3 (01:29→10:10)
[2022-05-13] MEDS: MAGNESIUM HYDROXIDE SUSP 30 ML UDCUP PO PRN ×2 (07:03→10:09)
[2022-05-13] MEDS ORDERED: INFLUENZA VIRUS VACCINE 0.5 ML SYRINGE IM ONE ×2 (09:00→13:30)
[2022-05-13] MEDS: MULTIVITAMIN (PRENATAL) TABLET PO SCH (10:10)
[2022-05-13] MEDS: SIMETHICONE CHEW 80 MG TABLET PO PRN (10:10)
[2022-05-13] MEDS: DOCUSATE SODIUM 100 MG CAPSULE PO SCH (10:10)
[2022-05-13] MEDS ORDERED: DIPH/TET/ACEL PERT BOOSTER VACCINE 0.5 ML VIAL IM ONE (12:46)
[2022-05-13 14:06] VITALS: BP 122/62
== END 2022-05-13 15:10 | disposition home or self-care (01) | DRG 540 ==
LOC: N.LDOUT 11:12 → N.LD 11:19 → N.OB 22:32
PROVIDERS: ADMIT Obstetrics & Gynecology; ATTEND Obstetrics & Gynecology
PROC: LDCSECT (ICD-10-PCS; 2022-05-11 13:30)